=== PATIENT | male | born 1995 | race Caucasian/White ===

== ENCOUNTER → 2024-06-04 08:32 | Outpatient (REF) | payer SELFPAY | LOC: RAD 08:32 | PROVIDERS: ATTENDING PHYSICIAN Chiropractor | DX: Z01.818 Encounter for other preprocedural examination (principal) | CPT/HCPCS: 70030 ==

== ENCOUNTER → 2024-10-15 14:02 | Outpatient (REF) | payer OTHER, SELFPAY | LOC: HWRAD 14:02 | PROVIDERS: ATTENDING PHYSICIAN Family Medicine | DX: H81.399 Other peripheral vertigo, unspecified ear (principal) | CPT/HCPCS: 70450 ==

== ENCOUNTER 2024-10-16 13:53 | Emergency (ER) | payer OTHER, SELFPAY ==
--- NOTE | 2024-10-16 16:20 | ED.GENMED ---
History of Present Illness
General
Chief Complaint: Dizziness
Source: patient
Exam Limitations: none
Time Seen by Provider: 10/16/24 15:57
History of Present Illness
History of Present Illness:
29yoM with no significant past medical history presenting for evaluation of dizziness. Symptoms have been intermittent for about 6 to 7 months. He reports intermittent episodes of feeling like the room is spinning. He was symptom-free for a few
months but his symptoms have become more frequent over the past 3 days. Symptoms seem to be worse with head movement. He is also having lightheadedness. He reports having episodes of feeling generally weak and palpitations like his heart is
racing. He has been seen by his PCP, ENT, eye doctor, and chiropractor for these symptoms. He had a CT head yesterday which was normal. He also had an MRI of his cervical and thoracic spine which were reportedly normal. Hearing test came back
unremarkable. He has tried meclizine without much relief. He has an appointment scheduled with neurology in November.
Phy Exam
General Physical Exam
General Presentation: well appearing and no apparent distress
General age: appears stated age
General Skin: warm and dry
General Habitus: normal
General Mental: alert
ENT Exam
ENT Exam: TM's normal
Eye Exam
Eye Exam: PERRL, EOMI and conjunctiva normal
Cardiovascular Exam
Cardiovascular Exam: regular rate/rhythm and no murmur
Pulmonary Exam
Pulmonary Exam: lungs clear, no respiratory distress, no rales, no crackles and no rhonchi
Neurological Exam
Neurological Exam: alert and other (Normal finger to nose and heel to johnson bilaterally)
[place] Coma Scale
Eye Opening: Spontaneous
Verbal Response: Oriented
Motor Response: Obeys Commands
GCS Total Score: 15
Skin Exam
Skin Exam: normal color and warm/dry
Psychiatric Exam
Psychiatric Exam: normal mood/affect
Course
Orders/Labs/Results
Orders:
Orders
10/16/24 16:03
Pt Eval And Treat Urgent
Treatment: vestibular therapy
Activity Level: Out of Bed- Ad Marga
10/16/24 16:18
Electrocardiogram (*1) Urgent
Reason for Study: Palpitations
EKG- Treatment ONCE
10/16/24 16:46
Complete Blood Count/With Diff Urgent
Comprehensive Metabolic Panel Urgent
TSH Reflex To Free T4 Urgent
Abnormal Lab Results
10/16/24
16:46
Albumin 5.1 H g/dl
(3.5-5.0)
10/16/24 16:46
10/16/24 16:46
Vital Signs
Initial and Last Documented VS:
Initial Vital Signs
Temp Pulse Resp BP Pulse Ox
98 F 80 16 121/82 99
10/16/24 16:50 10/16/24 16:50 10/16/24 16:50 10/16/24 16:50 10/16/24 16:50
Last Documented Vital Signs
Temp Pulse Resp BP Pulse Ox
98 F 74 16 118/74 100
10/16/24 16:50 10/16/24 18:05 10/16/24 18:05 10/16/24 18:05 10/16/24 18:05
MDM/Problems Addressed
Differential Diagnosis Includes:
29yoM here with dizziness. Started with vertigo 6-7 months ago. Also having lightheadedness and palpitations. Symptoms worsening x 3 days. Has been seen by multiple specialists in the past without any specific diagnosis. VSS. He is well-appearing
no acute distress. No nystagmus or ataxia noted on exam. Differential diagnosis includes but is not limited to: BPPV, other peripheral vertigo, orthostatic hypotension
Initial ED plan: Check CBC, CMP, TSH, and EKG. Will consult PT for vestibular evaluation. No indication for repeat imaging as head CT yesterday was negative.
*EKG
Interpreted by ED Provider?: Yes
EKG Intrepretation Date: 10/16/24
Heart Rate: 79
Rate: normal
Rhythm: sinus
[place]: normal axis
Interval: normal interval
QRS Pattern: normal QRS
Ischemia: no ischemia
*Critical Care Note
Total Time (30-74mins, 75-104mins- exclusive of procedures): Not Applicable
Update Note
Update Note:
Labs overall unremarkable including normal TSH. EKG shows normal sinus rhythm without ischemic changes or ectopy. Patient seen by PT and all vestibular testing was negative. PT also did orthostatic vital signs which were reportedly normal.
Unclear etiology of symptoms. No indication for hospitalization as symptoms are subacute and doubt acute CVA. He was advised to follow-up with neurology and his PCP. Patient discharged in stable condition.
ED Attending Note
-
Portions of this chart may have been created with voice recognition software.� Occasional wrong word or��sound alike� substitutions may have occurred due to the inherent limitations of voice recognition software.
Discharge Plan
Departure
Patient Disposition: Home (Routine Discharge)
Date of Disposition: 10/16/24
Time of Disposition: 18:43
Patient with high blood pressure during this ER visit?: No
Discharge Problem:
Dizziness
Instructions: Dizziness
Referrals:
Melany Laird MD [Active] -
Adri William PA [Family Provider] -
Activity Restrictions/Additional Instructions:
Please follow-up with your family doctor and neurology. Return to the ER with any new or worsening symptoms.
Interventions
Interventions:
*Risk Screen - Suicide Last Done: 10/16/24 13:59
*General Assessment Last Done: 10/16/24 13:59
*Neglect/Abuse Screening Last Done: 10/16/24 13:59
*ED- Fall Risk Assessment Last Done: 10/16/24 16:29
*ED COVID-19 Vaccine History Last Done: 10/16/24 16:29
*Nursing Disposition Last Done: 10/16/24 18:45
ED- Neurological Assessment Last Done: 10/16/24 16:29
ED- Cardiac Assessment Last Done: 10/16/24 18:45
ED Swallowing Screen Last Done: 10/16/24 16:29
Discharge Date and Time
Discharge Date/Time: 10/16/24 19:00
Print Language: [email or web address]
[2024-10-16 16:49] VITALS: BMI 25.7
[2024-10-16 16:50] VITALS: BP 121/82
[2024-10-16 16:53] VITALS: BP 121/82; BP 126/68; BP 134/71
[2024-10-16 16:56] LABS: % Basophils 0.6 % (0-2); % Eosinophils 1.1 % (0-6); % Immature Granulocytes 0.1 % (0-0.5); % Lymphocytes 22.8 % (20.5-51.1); % Monocytes 7.6 % (1.7-9.3); % Neutrophils 67.8 % (42.2-75.2); Absolute Eosinophils 0.1 10^3/uL (0-0.7); Absolute Lymphocytes 1.6 10^3/uL (1.2-3.4); Absolute Monocytes 0.6 10^3/uL (0.1-0.6); Absolute Neutrophils 4.9 10^3/uL (1.4-6.5); Hematocrit 40.5 % (39.0-52.0); Hemoglobin 14.5 g/dL (13.0-18.0); Mean Corp Hgb Conc. 35.8 g/dL (33.0-37.0); Mean Corpuscular Hgb 28.8 pg (27.0-31.0); Mean Corpuscular Volume 80.5 fL (80.0-94.0); Nucleated Red Blood Cells % 0 % (-); Platelet Count 218 10^3/uL (130-400); Red Blood Cell Count 5.03 10^6/uL (4.70-6.10); White Blood Cell Count 7.2 10^3/uL (4.8-10.8)
[2024-10-16 17:14] LABS: ALT (SGPT) 45 U/L (0-50); AST (SGOT) 26 U/L (17-59); Albumin 5.1 g/dl (3.5-5.0); Alkaline Phosphatase 60 U/L (38-126); Blood Urea Nitrogen 10 mg/dl (9-20); Calcium 9.6 mg/dl (8.4-10.2); Carbon Dioxide 25 mmol/L (22-30); Chloride 106 mmol/L (98-107); Estimated Creatinine Clearance > 125 ml/min; Glucose 97 mg/dl (70-99); Potassium 3.9 mmol/L (3.5-5.1); Sodium 142 mmol/L (135-145); Total Bilirubin 0.8 mg/dl (0.2-1.3); Total Protein 7.4 g/dl (6.3-8.2); eGFR > 60.00
[2024-10-16 17:44] LABS: TSH Reflex To Free T4 1.03 uIU/ml (0.47-4.68)
[2024-10-16 18:05] VITALS: BP 118/74
== END 2024-10-16 19:00 | disposition home or self-care (01) ==
LOC: EMR 13:53
PROVIDERS: Physician Assistant; EMERGENCY PHYSICIAN Emergency Medicine; FAMILY PHYSICIAN Family Medicine
DX: R42 Dizziness and giddiness (principal); R00.2 Palpitations
CPT/HCPCS: 99284; 80053; 84443; 85025; 93005

== ENCOUNTER → 2024-10-29 10:48 | Outpatient (REF) | payer OTHER, SELFPAY | LOC: RAD 10:48 | PROVIDERS: ATTENDING PHYSICIAN Family Medicine | DX: Z13.89 Encounter for screening for other disorder (principal) | CPT/HCPCS: 70030 ==